=== PATIENT | female | born 1960 | race Caucasian/White ===

== ENCOUNTER 2016-10-21 06:15 | Day surgery (SDC) | payer OTHER ==
[~2016-10-21] VITALS: Ht 162.6 cm; Wt 57.6 kg
[2016-10-21] VITALS (10 sets, daily range): BP systolic 115–137; BP diastolic 6–83; PULSE 50–65; RESP 11–17; O2SAT 98–100
[~2016-10-21 06:15] MED LIST: Bupivacaine Liposome 1.3% 20 mL Inj INFILTRATE ONE; CeFAZolin 2 Gm/50 mL D5W IV Premix IV ONE; Lactated Ringer's 1,000 ML IV ONE; Vancomycin Inj 1,000 MG in IV Premix 1 EACH IV ONE
[2016-10-21] MEDS ORDERED: Propofol 10,000 mCg/mL 20 mL Inj ONE (06:16)
[2016-10-21] MEDS ORDERED: Ondansetron 2 mg/mL 2 mL Inj ONE (06:16)
[2016-10-21] MEDS ORDERED: EPHEDrine/NS 5 mg/mL 5 mL Syringe ONE (06:16)
[2016-10-21] MEDS ORDERED: Dexamethasone 4 mg/mL Inj ONE (06:16)
[2016-10-21] MEDS ORDERED: fentaNYL-PF 50 mCg/mL 2 mL Inj ONE (06:16)
[2016-10-21] MEDS ORDERED: CeFAZolin Inj 2 gm / 50mL D5W IV ONE (06:26)
--- NOTE | 2016-10-21 07:48 | PCM.HPANE ---
Patient Data Surgeon Admitting Provider: Attending Provider:Sukhdev Golden MD Primary Care Physician:Dk Other Provider:Mayra Gutierrez Anesthesia Reason for Visit Left Knee Arthritis Ht/WT & BMI Height (Feet): 5 Height (Inches): 4.00 Weight (Kilograms): 57.600 Body Mass Index 21.00 Allergies Coded Allergies: No Known Allergies (Unverified , 10/21/16) Past Anesthesia History Anesthesia History: Denies:: Anesthesia Reactions Diabetes History Hx Diabetes?: No Medications Home Meds Incl Beta Boom: No No Active Prescriptions or Reported Meds History History of ENT Problems?: No HEENT History: Denies:: Abnormal Airway Cataracts Difficult Intubation Dysphagia Glaucoma Hearing Problem Sinus Problem TMJ Denture Type: None Teeth Condition: Within Normal Limits Hx of Heart Problems?: No Cardiovascular History: Denies:: AICD Abdominal Aortic Aneurism Atrial Fibrillation Cardiac Surgery Chest Pain Congestive Heart Failure Coronary Artery Disease Edema Heart Murmur Hypertension Irregular Heartbeat Pacemaker Peripheral Vascular Rheumatic Fever Thrombophlebitis Valvular Heart Disease Hx of Respiratory Problem?: No Respiratory History: Denies:: Oxygen Administration Use of C-PAP Machine Hx Neurologic Problems?: No Hx of GI Problems?: No Hx of Problems?: No Female Hx: Denies:: Currently Hx Musculoskeletal Problems?: Yes Musculoskeletal History: Positive for:: Musculoskeletal Trauma (left knee current admission problem) Osteoarthritis Denies:: Joint Replacement Hx of Psycho/Social Problems?: No Hx Surgeries?: Yes (knee scope, ACL reconstruction) Hx Any Other Health Problems?: Yes Other History: Denies:: Cancer Thyroid Disease Hx Diabetes: No Have You Smoked inLast 12 mo: No Stop/Bang S-Snoring: Do You Snore Loudly: No T-Tired: feel tired, fatigued: No O-Obsered: Observed not breath: No P-Blood Pressure: treated: No B- Body Mass Index > 35 kg/m2: No A- Age over 50: Yes N- Neck Large Circumference: No G- Gender Male: No JACQUELINE Total Score: 1 Risk Assessment Category Category 1A: Patient has history of documented sleep apnea, and HAS NOT received any narcotic, sedative or anesthesia administration during this stay. Category 1B: Patient has history of documented sleep apnea, and HAS received any narcotic , sedative or anesthesia administration during this stay Category 2: Patient has SUSPECTED Obstructive Sleep Apnea, and HAS received any narcotic , sedative or anesthesia administration during this stay. Category 3: Patient has SUSPECTED Obstructive Sleep Apnea and HAS NOT received narcotic, sedative or anesthesia administration during this stay. Category 4: Outpatient in Procedural Areas with known sleep apnea or who screen positive for High Risk via the STOP/BANG questionnaire. Exam Exam Vital Signs Vital Signs Date Time Temp Pulse Resp B/P Pulse Ox O2 Delivery O2 Flow Rate FiO2 10/21/16 06:32 36.4 65 14 137/83 99 Room Air General Appearance: Alert, Oriented X3, Cooperative, No Acute Distress HEENT/AIRWAY: MP 1 Lungs: Normal Air Movement Heart: Regular Rate/Rhythm Meds/Labs/Diagnostics Admission Meds Current Medications Vancomycin/0.9 % Sod Chloride 1000 mg/Premix 200 ml @ 133.333 mls/hr PREOP ONCE IV Last administered on 10/21/16 06:55; Start 10/21/16 at 06:00; Stop at 07:29; Status DC Lactated Ringer's (Lr) 1,000 ml @ ud STK-MED ONCE IV Last administered on 10/21 06:00; Start 10/21/16 at 06:00; Stop 10/21/16 at 06:56; Status DC Plan Impression Patient chart reviewed, patient interviewed and anesthestic plan with risks, benefits, and alternatives discussed, and informed consent obtained. ASA Physical Status: ASA2 Mod Systemic Disease Anesthetic Plan: GA Bene/Risks/Altern/Consents: Yes HP Complete Prior to Induction: Yes Fina Orozco DO Oct 21, 2016 07:48
[2016-10-21] MEDS ORDERED: Lactated Ringer's 1,000 ML IV SCH (08:14)
[2016-10-21] MEDS ORDERED: Lactated Ringer's 500 ML IV PRN (08:14)
[2016-10-21] MEDS ORDERED: MetoCLOpramide 5 mg/mL 2 mL Inj IVPUSH PRN (08:15)
[2016-10-21] MEDS ORDERED: Ondansetron 2 mg/mL 2 mL Inj IVPUSH PRN (08:15)
[2016-10-21] MEDS ORDERED: Phenylephrine 10,000 mCg/mL Inj IVPUSH PRN (08:15)
[2016-10-21] MEDS ORDERED: HYDROmorphone 1 mg/mL Inj IVPUSH PRN (08:15)
[2016-10-21] MEDS ORDERED: EPHEDrine Sulfate 50 mg/mL Inj IVPUSH PRN (08:15)
[2016-10-21] MEDS ORDERED: Bupivacaine-MPF 0.25%/EPI 30 mL Inj INJ ONE (08:28)
[2016-10-21] MEDS ORDERED: Gentamicin 40 mg/mL 2 mL Inj IRRIGATION ONE (08:28)
[2016-10-21] MEDS ORDERED: Bupivacaine Liposome 1.3% 20 mL Inj INFILTRATE ONE (08:28)
[2016-10-21] MEDS ORDERED: HYDROmorphone 0.5 mg/0.5 mL iSecure Syringe ONE (09:27)
[2016-10-21] MEDS: fentaNYL-PF 50 mCg/mL 2 mL Inj IVPUSH PRN ×2 (09:41→09:48)
--- NOTE | 2016-10-21 10:07 | DRSVH ---
PROCEDURE: X-RAY LEFT KNEE, ONE OR TWO VIEWS ([id number]) INDICATIONS: post op TECHNIQUE: 2 views of the knee were acquired. COMPARISON: [facility], CR, XR KNEE ARTHRITIC SERIES , 03/26/2016, 8:23. FINDINGS: Interval postsurgical changes are present related to a medial compartment hemiarthroplasty. The meta llic prosthetic components are intact. There is no periprostatic fracture. A screw with a correspon ding washer is again evident extending obliquely through the proximal lateral left tibial metaphysis, unchanged. Expected soft tissue edema and soft tissue air are seen overlying the left knee. There is a joint effusion. A drainage catheter seen overlying the knee. IMPRESSION: Postoperative changes related to a medial compartment hemiarthroplasty. Dictated by: Maury Mckeon M.D. on 10/21/2016 at 9:04 Approved by: Maury Mckeon M.D. on 10/21/2016 at 9:05
[2016-10-21] MEDS ORDERED: oxyCODONE-Acetamin 5-325 mg Tablet PO ONE (10:09)
--- NOTE | 2016-10-21 10:59 | PCM.ANEP1 ---
Post Anesthesia Phase 1 PACU Phase 1 Assessment Vital Signs Vital Signs Date Time Temp Pulse Resp B/P Pulse Ox O2 Delivery O2 Flow Rate FiO2 10/21/16 10:01 50 12 125/64 100 Room Air 10/21/16 09:55 52 14 115/80 98 Room Air 10/21/16 09:50 52 14 116/71 100 Room Air 10/21/16 09:45 50 13 119/74 100 Room Air 10/21/16 09:40 50 14 120/72 100 Room Air 10/21/16 09:35 50 17 118/73 98 Room Air 10/21/16 09:30 58 11 117/69 100 Room Air 10/21/16 09:25 36.9 58 14 122/63 100 Simple Mask 8 10/21/16 06:32 36.4 65 14 137/83 99 Room Air Anesthetic Administered: GA Level of Alertness: Awake, talking HAYES's with Equal Strength: Yes Pain: Yes Nausea or Vomiting: No Oxygen Delivery: Room Air Lungs: Normal Air Movement Complications: No Fina Orozco DO Oct 21, 2016 10:59
--- NOTE | 2016-10-21 21:54 | OP ---
[address] [address] OPERATIVE REPORT PATIENT: MARLEN CHAPPELL : 1960 MR#: [id number] ADMIT: 10/21/2016 JOB ID: [id number] DATE OF SURGERY: 10/21/2016 PREOPERATIVE DIAGNOSIS(ES): Advanced medial compartment osteoarthritis left knee. POSTOPERATIVE DIAGNOSIS(ES): Advanced medial compartment osteoarthritis left knee. PROCEDURE: Unicompartmental knee arthroplasty. SURGEON: Sukhdev Golden MD. UPPERS EDGE BURNISHER: Macey Jordan PA-C. Electronics Technology Instructor required due to the complexity of the operation. INDICATIONS: This woman has had progressive disability associated with medial compartment disease. She understands and accepts the potential for risks and complications which include, but is not limited to, infection, thromboembolic, neurovascular events, as well as potential for progressive arthritis in unresurfaced compartments. She is highly active in sports activities and has a strong preference for unicompartmental knee, accepting the potential for progressive arthritis in the contralateral compartment. PROCEDURE: The patient was prepped and draped in usual sterile fashion. An anteromedial approach was made. Dissection was carried down. Frontal bossing and a patellar osteophyte removed. The patella was subluxed laterally. The lateral compartment was visualized. There was mild chondromalacia of the femoral condyle but advanced grade 2 at most. Wounds irrigated with sterile irrigant. Tibial alignment apparatus was assembled and tibial cut was made. Gap formula checker utilized but was noted to be slightly tight and a tibial re-cut was made. The 9 mm spacer block was subsequently utilized and the distal femoral cut was made. The fragment measured 6 mm by caliper. Wounds were irrigated with sterile irrigant. The femur was sized to a #5 chamfer cutting block, fixed in appropriate position, rotation, drill holes and chamfer cuts were made. All bone fragments removed. All meniscal tissue and osteophytes removed from the knee. The tibia was sized to an F, tibial provisional placed for drill stabilization holes. Trial reduction was performed and a 9 mm polyethylene was chosen, which produced appropriate alignment, soft tissue tension and tracking. Wounds were irrigated with sterile irrigant. Pressurized lavage followed by pressurized cementation of the components. Excess cement was removed during the curing process. Final construct assembled. Tourniquet let down. Hemostasis was achieved. Deep closure over Hemovac drain with #2 Quill deep followed by 2-0 Vicryl, 3-0, and a 4-0 intracuticular stitch. Steri-Strips were applied. The patient was returned to the recovery room stable condition. Tolerated procedure well. There were no complications.
== END 2016-10-21 23:59 | disposition home or self-care (01) ==
LOC: SAS 06:15
PROVIDERS: ATTEND Orthopaedic Surgery
DX: M17.12 Unilateral primary osteoarthritis, left knee (principal)
CPT/HCPCS: 27446; 73560; C1713; C1776; J0690; J1100; J1170; J1580; J1885; J2405; J3010; J3370; J7120